=== PATIENT | male | born 2005 | race Caucasian/White ===

== ENCOUNTER 2025-08-10 02:22 | Emergency (ER) | payer SELFPAY ==
[~2025-08-10] VITALS: Ht 182.9 cm; Wt 72.7 kg
[2025-08-10 02:35] VITALS: TEMP 98.7
[2025-08-10 03:07] LABS: PLATELET COUNT (AUTO) 262 K/uL (150-450); RED BLOOD CELL COUNT(AUTO) 4.30 MIL/uL (4.50-5.90); RED CELL DISTRIBUTION WIDTH 13.1 % (11.5-14.5); WHITE BLOOD COUNT (AUTO) 11.3 K/uL (4.5-11.0)
[2025-08-10 03:13] LABS: CALCIUM, TOTAL 8.7 mg/dL (8.8-10.5); CREATININE 0.68 mg/dL (0.60-1.30); GLOMERULAR FILTR. RATE CALC > 60 mL/min (>60); GLUCOSE,RANDOM 100 mg/dL (70-110); SODIUM SERUM 142 mmol/L (136-145); UREA NITROGEN, BLOOD 6 mg/dL (7-18)
[2025-08-10] MEDS: FentaNYL CITRATE PF 100 MCG/2 ML VIAL IVP ONE (03:20)
[2025-08-10] MEDS: ONDANSETRON HCL 4 MG/2 ML VIAL IVP ONE (03:20)
[2025-08-10 03:26] LABS: ASPARTATE AMINOTRANSFERASE 13.0 U/L (15-37); TOTAL PROTEIN, SERUM 6.3 g/dL (6.4-8.2)
[2025-08-10 04:15] LABS: APPEARANCE,URINE HAZY (CLEAR); GLUCOSE, URINE (UA) NEGATIVE (NEGATIVE); LEUKOCYTE ESTERASE ,URINE NEGATIVE (NEGATIVE); NITRATE,URINE NEGATIVE (NEGATIVE); OCCULT BLOOD,URINE LARGE (NEGATIVE); SPECIFIC GRAVITIY, URINE 1.016 (1.003-1.030)
[2025-08-10 04:22] LABS: AMORPHOUS SEDIMENT,UR Moderate /LPF (None Seen); SQUAMOUS EPITHELIAL CELL,UR Few /LPF (None Seen)
[2025-08-10] MEDS: KETOROLAC TROMETHAMINE 30 MG/ML VIAL IVP ONE (04:44)
[2025-08-10] MEDS ORDERED: IBUP-1492 PO (04:54)
[2025-08-10] MEDS ORDERED: ONDA-104 PO (04:54)
[2025-08-10 06:19] VITALS: BP 115/78; PULSE 70; RESP 18; O2SAT 99
== END 2025-08-10 06:41 | disposition home or self-care (01) ==
LOC: EMS 02:24
DX: N20.1 Calculus of ureter (principal); R10.32 Left lower quadrant pain; R11.10 Vomiting, unspecified
CPT/HCPCS: 99285; 74176; 96374; 96375; 80048; 80076; 81001; 83690; 85025; 36415; J1885; J3010; J2405